=== PATIENT | male | born 1975 | race Two or more races ===

== ENCOUNTER 2025-05-06 23:02 | Emergency (ER) | payer MEDICAID ==
[~2025-05-06] VITALS: Ht 188 cm; Wt 72.6 kg
[~2025-05-06 23:02] MED LIST: ERYT3.5O9; HYDR-4275 PO
[2025-05-06 23:40] VITALS: BP 134/72; TEMP 98.3; O2SAT 98
== END 2025-05-07 00:19 | disposition home or self-care (01) ==
LOC: ER 23:12
DX: R09.89 Other specified symptoms and signs involving the circulatory and respiratory systems (principal); F17.200 Nicotine dependence, unspecified, uncomplicated
CPT/HCPCS: 71045-TC